=== PATIENT | male | born 1985 | race Caucasian/White ===

== ENCOUNTER 2017-04-11 21:35 | Emergency (ER) | payer OTHER ==
[~2017-04-11] VITALS: Ht 180.3 cm; Wt 130.5 kg
[~2017-04-11 21:35] MED LIST: ALBU1AER9 INH; GLC/500 PO
[2017-04-11 21:40] VITALS: TEMP 36.7; Ht 180.3 cm; Wt 130.5 kg
[2017-04-11] MEDS ORDERED: AMOXICIL/CLAVU 875MG HOME PACK PO ONE (21:45)
[2017-04-11 22:03] VITALS: BP 153/102; PULSE 107; O2SAT 97
[2017-04-11] MEDS ORDERED: TRMO2580 TOP (22:04)
[2017-04-11] MEDS ORDERED: VNTHFA/IN INH (22:04)
[2017-04-11] MEDS ORDERED: AMOX875T PO (22:35)
[2017-04-11] MEDS ORDERED: DIPHTHERIA/TETANUS/PERTUSSIS 0.5 ML SYR/VIAL IM. ONE (22:45)
[2017-04-11 22:56] LABS: HEPATITIS B AB NEG
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
== END 2017-04-11 22:49 | disposition home or self-care (01) ==
LOC: C.EDB 21:36 → C.EDD 22:49
DX: Z77.21 Contact with and (suspected) exposure to potentially hazardous body fluids (principal); Y92.149 Unspecified place in prison as the place of occurrence of the external cause; Y99.0 Civilian activity done for income or pay; Z23 Encounter for immunization; I10 Essential (primary) hypertension